=== PATIENT | female | born 2000 | race African-American/Black ===

== ENCOUNTER 2021-02-11 14:26 | Outpatient (CLI) | payer MEDICARE, MEDICAID, SELFPAY | END 2021-02-11 14:27 | disposition home or self-care (01) | LOC: ANHAUDIO 14:28 | PROVIDERS: Visit Provider Otolaryngology | DX: H91.21 Sudden idiopathic hearing loss, right ear (principal) | CPT/HCPCS: 92557; 92567 ==

== ENCOUNTER 2022-02-12 10:04 | Outpatient (CLI) | payer MEDICARE, MEDICAID, SELFPAY | END 2022-02-12 10:05 | disposition home or self-care (01) | LOC: ANHAUDIO 10:07 | PROVIDERS: Visit Provider Otolaryngology | DX: H90.5 Unspecified sensorineural hearing loss (principal) | CPT/HCPCS: 92557; 92567 ==